=== PATIENT | male | born 1945 | race African-American/Black ===

== ENCOUNTER 2017-02-10 12:31 | Emergency (ER) | payer MEDICARE ==
[~2017-02-10] VITALS: Ht 188 cm; Wt 93.0 kg
[2017-02-10 12:45] VITALS: BP 118/73
== END 2017-02-10 14:59 | disposition home or self-care (01) ==
LOC: ER 12:31
DX: I83.92 Asymptomatic varicose veins of left lower extremity (principal); Z88.2 Allergy status to sulfonamides; Z98.890 Other specified postprocedural states; Z91.040 Latex allergy status; Z88.8 Allergy status to other drugs, medicaments and biological substances; Z91.013 Allergy to seafood
CPT/HCPCS: 99281